=== PATIENT | male | born 1980 | race Caucasian/White ===

== ENCOUNTER 2020-09-04 08:02 | Day surgery (SDC) | payer MEDICAID ==
[~2020-09-04 08:02] MED LIST: Bupivacaine 0.5% 50 ML MDV ONE; Dexamethasone 4 MG/ML SDV ONE; Glycopyrrolate 0.2 MG/ML 5 ML MDV ONE; Lidocaine 1% with EPINEPHrine 1:100,000 50 ML MDV ONE; Neostigmine Methylsulfate 1 MG/ML 5 ML Syringe ONE; Ondansetron 4 MG/2 ML SDV ONE; Propofol 200 MG/20 ML SDV ONE; Rocuronium 50 MG/5 ML Vial ONE; Succinylcholine 200 MG/10 ML MDV ONE; fentaNYL 250 MCG/5 ML SDV ONE
[2020-09-04] MEDS ORDERED: Sodium Chloride 0.9% 1,000 ML IV SCH (08:30)
[2020-09-04] MEDS ORDERED: metroNIDAZOLE/Normal Saline 500 MG in Premix Bag 1 BAG IV ONE (09:30)
[2020-09-04] MEDS ORDERED: ceFAZolin 2 GM in Premix Bag 1 BAG IV ONE (09:30)
[2020-09-04] MEDS ORDERED: fentaNYL 250 MCG/5 ML SDV ONE (09:40)
[2020-09-04] MEDS ORDERED: hydrOXYzine HCL 100 MG/2 ML SDV IM PRN (09:44)
[2020-09-04] MEDS ORDERED: Docusate Sodium 100 MG Cap PO PRN (09:44)
[2020-09-04] MEDS ORDERED: Zolpidem 5 MG Tab PO PRN (09:44)
[2020-09-04] MEDS ORDERED: Benzocaine/Cetylpyridinium/Menthol Lozenge MUCMEM PRN (09:44)
[2020-09-04] MEDS ORDERED: Ketorolac 60 MG/2 ML SDV ONE (10:03)
[2020-09-04] MEDS: Acetaminophen/HYDROcodone 325-5 MG Tab PO PRN ×2 (12:11→17:42)
--- NOTE | 2020-09-04 13:36 | OR ---
DATE OF PROCEDURE: 09/04/2020 SURGEON: Carlos Ro MD PROCEDURE PERFORMED: 1. Transversus abdominis plane block bilaterally. 2. Rectus sheath block bilaterally. COMPLICATION: None. GRANITE BLOCK PAVER: None. RISKS: Risks, benefits, alternatives, and limitations including, but not limited to, infection, bleeding, and injury to abdominal structures were explained to patient who wished to proceed. PROCEDURE IN DETAIL: The patient was placed in supine position. The left transversus plane was identified first. This was accessed using a 13 megahertz ultrasound probe. The 21- gauge needle was then introduced and advanced under direct visualization. 20% solution was injected in the transversus plane. This was then performed on the right side in the same manner, same fashion, same technique, in the same sequence. Both rectus sheaths were then injected under direct visualization. No evidence of peritoneal entry was noted during that aspect or any part of this. A total of 80% of the solution was used during the procedure. The patient tolerated the procedure well. Carlos Ro MD /[id number]
--- NOTE | 2020-09-04 13:56 | OR ---
DATE OF PROCEDURE: 09/04/2020 SURGEON: Carlos Ro MD PROCEDURE: Laparoscopic cholecystectomy. PREOPERATIVE DIAGNOSIS: Cholelithiasis/biliary dyskinesia. POSTOPERATIVE DIAGNOSIS: Cholelithiasis/biliary dyskinesia. RISKS: Risks, benefits, alternatives, and limitations including, but not limited to infection, bleeding, cystic duct leaks, common bile duct injuries, possibility of open surgery and other risks not listed here were explained to the patient, who wished to proceed. PROCEDURE IN DETAIL: The patient was placed in supine position. A supraumbilical curvilinear incision was made. A Veress needle was used to enter the abdomen without abnormality. A drop test was performed without abnormality. The abdomen was subsequently insufflated. This was followed by an Optiview trocar. An additional 10 and two 5 mm ports were entered under direct visualization. The gallbladder was retracted cephalad. The infundibulum was retracted inferolaterally. Using blunt dissection, a "clear view" of the gallbladder was obtained with a single pulsatile structure in the gallbladder and a single non-pulsatile structure in the gallbladder. Photo was taken of this. These were clipped x3 and subsequently transected. The remaining 1/3 of the gallbladder was removed off the gallbladder bed without difficulty. The gallbladder was then removed through the superior port without difficulty. The pressure was dropped to 7. No bleeding was noted from the gallbladder fossa. The gallbladder fossa was irrigated. Liquid was removed. The air was removed. Prior to this, the entry point was inspected for enterotomy injury or bleeding, none was noted. The wounds were closed with 3-0 Vicryl and 4-0 Vicryl in interrupted running fashion. Dermabond was applied. The patient tolerated the procedure well. Carlos Ro MD /[id number]
[2020-09-04] MEDS ORDERED: Ondansetron 4 MG Tab.DIS PO PRN (14:03)
[2020-09-04] MEDS ORDERED: Scopolamine 1.5 MG Transdermal Patch TOP SCH (14:15)
[2020-09-05] MEDS ORDERED: SCOPOLAMINE PATCH CHECK TOP SCH (09:00)
== END 2020-09-04 18:09 | disposition home or self-care (01) ==
LOC: JP.SDS 08:02 → JP.MS 09:44 → JP.SDS 18:09
PROVIDERS: ATTEND Surgery
DX: K81.1 Chronic cholecystitis (principal); F41.9 Anxiety disorder, unspecified; D58.0 Hereditary spherocytosis; Z79.899 Other long term (current) drug therapy; Z01.812 Encounter for preprocedural laboratory examination; Z20.822 Contact with and (suspected) exposure to COVID-19
CPT/HCPCS: 36415; 47562; 80053; 85027; 87635; A9270; J0171; J0330; J0690; J1100; J1885; J2405; J2704; J2710; J2795; J3010; J3410; J3490; J7030; U0002

== ENCOUNTER 2023-04-11 08:04 | Emergency (ER) | payer MEDICAID ==
[2023-04-11 09:36] LABS: APPEARANCE,URINE CLEAR (CLEAR); BILIRUBIN,URINE NEGATIVE (NEGATIVE); COLOR,URINE YELLOW (YELLOW); GLUCOSE,URINE NEGATIVE (NEGATIVE); KETONES,URINE NEGATIVE (NEGATIVE); LEUKOCYTE ESTERASE,URINE NEGATIVE (NEGATIVE); NITRITE,URINE NEGATIVE (NEGATIVE); OCCULT BLOOD,URINE TRACE-INTACT (NEGATIVE); PH,URINE 6.5 (5.0-8.0); PROTEIN,URINE TRACE mg/dL (NEGATIVE); UROBILINOGEN,URINE 0.2 EU/dL (0.2-1.0)
[2023-04-11 09:43] LABS: AMORPHOUS SEDIMENT,URINE NOT SEEN; BACTERIA,URINE NOT SEEN; EPITHELIAL CELLS,URINE NOT SEEN; MUCUS,URINE NOT SEEN; RBC,URINE 0-5 (0-5); WBC,URINE 0-5 (0-5)
== END 2023-04-11 10:15 | disposition home or self-care (01) ==
LOC: JP.ED 08:04
DX: R33.9 Retention of urine, unspecified (principal)
CPT/HCPCS: 81001; 99284

== ENCOUNTER 2023-04-16 07:35 | Emergency (ER) | payer MEDICAID ==
[2023-04-16] MEDS ORDERED: LORazepam 2 MG/ML SDV IM ONE (08:07)
[2023-04-16] MEDS ORDERED: Lidocaine 2% Jelly 10 ML Urojet MUCMEM ONE (09:30)
[2023-04-16] MEDS ORDERED: HYDROmorphone 1 MG/ML Syringe IM ONE (09:54)
[2023-04-16] MEDS ORDERED: Ketorolac 30 MG/ML SDV IM ONE (10:56)
== END 2023-04-16 11:21 ==
LOC: JP.ED 07:35
DX: R33.9 Retention of urine, unspecified (principal); Z79.899 Other long term (current) drug therapy
CPT/HCPCS: 74176; 96372; 99283; 99284; J1170; J1885; J2060

== ENCOUNTER 2023-04-29 15:40 | Emergency (ER) | payer MEDICAID ==
[2023-04-29 16:36] LABS: BASOPHILS ABSOLUTE AUTO 0.05 K/uL (0.00-0.10); BASOPHILS PERCENT AUTO 0.3 % (0.1-1.3); EOSINOPHILS PERCENT AUTO 0.1 % (0.0-5.4); HEMATOCRIT 39.7 % (38.4-49.7); HEMOGLOBIN 13.8 g/dL (12.9-16.9); IMMATURE GRAN ABSOLUTE AUTO 0.07 K/uL (0.00-0.23); IMMATURE GRAN PERCENT AUTO 0.4 % (0.0-0.7); LYMPHOCYTES ABSOLUTE AUTO 1.13 K/uL (0.8-3.3); MEAN CORPUSCULAR HEMOGLOBIN 29.9 pg (31.6-35.5); MEAN CORPUSCULAR HGB CONC 34.8 g/dL (31.6-35.5); MEAN CORPUSCULAR VOLUME 85.9 fL (81.4-99.0); MONOCYTES ABSOLUTE AUTO 1.18 K/uL (0.20-0.90); MONOCYTES PERCENT AUTO 7.3 % (3.3-12.6); NEUTROPHILS ABSOLUTE AUTO 13.74 K/uL (1.0-7.6); NEUTROPHILS PERCENT AUTO 84.9 % (40.0-78.1); PLATELET COUNT,PLT 282 K/uL (130-375); RED BLOOD CELL COUNT 4.62 M/uL (4.14-5.76); WHITE BLOOD CELL COUNT,WBC 16.2 K/uL (3.2-11.0)
[2023-04-29 16:37] LABS: EOSINOPHILS ABSOLUTE AUTO 0.02 K/uL (0.00-0.40)
[2023-04-29 16:54] LABS: ANION GAP 15.5 mmol/L (5.0-14.0); CALCIUM 8.6 mg/dL (8.5-10.1); EST CRCL DRUG DOSING (CG) 88.61 mL/min; POTASSIUM,K 3.5 mmol/L (3.6-5.2)
[2023-04-29 17:55] LABS: APPEARANCE,URINE CLOUDY (CLEAR); BILIRUBIN,URINE NEGATIVE (NEGATIVE); COLOR,URINE YELLOW (YELLOW); GLUCOSE,URINE NEGATIVE (NEGATIVE); KETONES,URINE NEGATIVE (NEGATIVE); LEUKOCYTE ESTERASE,URINE SMALL (NEGATIVE); NITRITE,URINE POSITIVE (NEGATIVE); OCCULT BLOOD,URINE LARGE (NEGATIVE); PROTEIN,URINE 100 mg/dL (NEGATIVE); UROBILINOGEN,URINE 0.2 EU/dL (0.2-1.0)
[2023-04-29 17:58] LABS: AMORPHOUS SEDIMENT,URINE NOT SEEN; BACTERIA,URINE MODERATE; EPITHELIAL CELLS,URINE NOT SEEN; MUCUS,URINE NOT SEEN; RBC,URINE 40-50 (0-5); WBC,URINE 20-30 (0-5)
== END 2023-04-29 18:37 | disposition home or self-care (01) ==
LOC: JP.ED 15:40
DX: N39.0 Urinary tract infection, site not specified (principal)
CPT/HCPCS: 36415; 80048; 81001; 83605; 85025; 87086; 99283

== ENCOUNTER 2025-05-23 10:50 | Emergency (ER) | payer MEDICAID ==
[2025-05-23 12:17] LABS: BASOPHILS ABSOLUTE AUTO 0.05 K/uL (0.00-0.10); BASOPHILS PERCENT AUTO 0.7 % (0.1-1.3); EOSINOPHILS ABSOLUTE AUTO 0.06 K/uL (0.00-0.40); EOSINOPHILS PERCENT AUTO 0.9 % (0.0-5.4); IMMATURE GRAN PERCENT AUTO 0.1 % (0.0-0.7); LYMPHOCYTES ABSOLUTE AUTO 1.35 K/uL (0.8-3.3); LYMPHOCYTES PERCENT AUTO 20.1 % (11.4-47.7); MONOCYTES ABSOLUTE AUTO 0.56 K/uL (0.20-0.90); MONOCYTES PERCENT AUTO 8.4 % (3.3-12.6); NEUTROPHILS ABSOLUTE AUTO 4.67 K/uL (1.0-7.6); NEUTROPHILS PERCENT AUTO 69.8 % (40.0-78.1); PLATELET COUNT,PLT 283 K/uL (130-375); RED BLOOD CELL COUNT 5.20 M/uL (4.14-5.76); WHITE BLOOD CELL COUNT,WBC 6.7 K/uL (3.2-11.0)
[2025-05-23 12:19] LABS: IMMATURE GRAN ABSOLUTE AUTO 0.01 K/uL (0.00-0.23)
[2025-05-23 12:40] LABS: BLOOD UREA NITROGEN,BUN 10.0 mg/dL (7-18); CARBON DIOXIDE,CO2 28.0 mmol/L (21-32); CHLORIDE,CL 103.0 mmol/L (100-108); CREATININE 1.0 mg/dL (0.8-1.3); EST CRCL DRUG DOSING (CG) 89.97 mL/min; ESTIMATED GFR 96.0 mL/min (>60); GLUCOSE RANDOM 91.0 mg/dL (74-106); POTASSIUM,K 4.2 mmol/L (3.6-5.2); SODIUM,NA 140.0 mmol/L (140-148); TROPONIN I HIGH SENSITIVITY 7.8 pg/mL (<=60.3)
== END 2025-05-23 13:52 | disposition home or self-care (01) ==
LOC: JP.ED 10:50
DX: R07.89 Other chest pain (principal); F41.9 Anxiety disorder, unspecified; Z90.49 Acquired absence of other specified parts of digestive tract
CPT/HCPCS: 36415; 80048; 84484; 85025; 93010; 99283; 99285